=== PATIENT | female | born 1995 | race Two or more races ===

== ENCOUNTER 2017-10-16 12:04 | Outpatient (CLI) | payer BC ==
[~2017-10-16 12:04] MED LIST: ACETAMINOPHEN 325 MG TABLET PO PRN; DIPHENHYDRAMINE HCL 25 MG CAPSULE PO PRN; IRON DEXTRAN COMPLEX 25 MG in SYRINGE, DISPOSABLE, 1 EACH IV PRN; IRON DEXTRAN COMPLEX 975 MG in NORMAL SALINE 1000 ML 1,000 ML IV PRN; NORMAL SALINE 250 ML IV PRN
[2017-10-16 15:19] VITALS: BP 120/58
== END 2017-10-16 18:34 | disposition home or self-care (01) ==
LOC: II 12:04 → 5TH 12:51 → II 18:34
PROVIDERS: ATTEND Internal Medicine
PROC: 3E033GC Introduction of Other Therapeutic Substance into Peripheral Vein, Percutaneous Approach (ICD-10-PCS; principal; 2017-10-16)
DX: D50.8 Other iron deficiency anemias (principal)
CPT/HCPCS: 96365; 96366; 96375; J1750; J7030; J3490; 96374